=== PATIENT | female | born 1955 | race Caucasian/White ===

== ENCOUNTER 2017-01-14 10:29 | Outpatient (CLI) | payer BC ==
--- NOTE | 2017-01-14 16:25 | DIAGNOSTIC IMAGING REPORT ---
PROCEDURE: MG BILATERAL SCREENING W/CAD INDICATION: SCREENING . Grandmother, cousin x2, great aunt and sister with a history of breast cancer TECHNIQUE: Bilateral CC and MLO digital views. COMPARISON: Mammograms 01/22/2015, 06/14/2013 and 05/10/2012. FINDINGS: Computer-aided detection applied. Mildly dense pattern with innumerable dystrophic calcifications bilaterally, left greater than right, stable. No suspicious masses or pleomorphic microcalcifications. IMPRESSION: 1. Negative mammogram RESULT CODE: 2- Benign finding(s). A. A negative report should not delay biopsy if a dominant or clinically suspicious mass is present. 10-15% of cancers are not identified by x-ray. B. A negative report may reinforce clinical impression. C. Adenosis and dense breasts may obscure an underlying neoplasm. D. False positive reports average 6-10%. E.. A yearly screening mammogram is recommended. A reminder letter will be scheduled.
== END 2017-01-14 23:00 ==
LOC: MAM SRH 10:29
DX: Z12.31 Encounter for screening mammogram for malignant neoplasm of breast (principal); Z80.3 Family history of malignant neoplasm of breast